=== PATIENT | female | born 1975 | race Caucasian/White ===

== ENCOUNTER 2022-01-27 01:12 | Observation (INO) ==
[2022-01-27] MEDS ORDERED: *HR* Midazolam HCl 2 MG/2 ML VIAL ONE (01:14)
[2022-01-27] MEDS ORDERED: 0.9 % Sodium Chloride 2,000 ML ONE (01:14)
[2022-01-27] MEDS ORDERED: *HR* FentaNYL (PF) 100 MCG/2 ML VIAL ONE (01:14)
[2022-01-27] MEDS ORDERED: Iopamidol - 370 200 ML INFUS..BTL ONE (01:15)
[2022-01-27] MEDS ORDERED: Heparin 1,000 UNITS/500 mL 500 ML ONE (01:15)
[2022-01-27] MEDS ORDERED: *HR* Heparin 10,000 UNIT/10 ML VIAL ONE (01:15)
[2022-01-27] MEDS ORDERED: Nitroglycerin 1,000 MCG/5 ML VIAL IV ONE (01:15)
[2022-01-27] MEDS ORDERED: Tirofiban 12.5 MG/250ML 12.5 MG/250 ML BAG ONE (01:40)
[2022-01-27] MEDS ORDERED: *HR* Ticagrelor 90 MG TABLET ONE (02:10)
[2022-01-27] MEDS ORDERED: Perflutren Lipid Microsphere 1.3 ML in 0.9 % Sodium Chloride 8.7 ML IVP PRN (06:24)
[2022-01-27] MEDS: *HR* Ticagrelor 90 MG TABLET PO SCH ×2 (07:37→20:21)
[2022-01-27] MEDS: Aspirin Enteric Coated 81 MG Tablet PO SCH (07:37)
[2022-01-27 08:02] LABS: Basophils % 0.2 %; Eosinophils % 0.3 %; Hematocrit 35.2 % (35.3-44.9); Hemoglobin 11.6 g/dL (11.5-15.4); Immature Granulocytes % 0.3 % (0-4); Lymphocytes # 2.3 K/mcL (0.6-4.6); Lymphocytes % 24.4 %; Mean Corpuscular Hemoglobin 30.4 pg (28.0-33.3); Mean Corpuscular Volume 92.4 fL (83.0-100.0); Mean Platelet Volume 10.1 fL (9.4-12.4); Monocytes # 0.6 K/mcL (0.0-1.3); Monocytes % 6.6 %; Neutrophils # 6.4 K/mcL (1.6-8.9); Platelet Count 292 K/mcL (140-400); Red Blood Count 3.81 M/mcL (3.82-4.97); Segmented Neutrophils % 68.2 %; White Blood Count 9.4 K/mcL (4.3-11.1)
[2022-01-27 08:21] LABS: BUN/Creatinine Ratio 7 (6-26); Blood Urea Nitrogen 5 mg/dL (6-20); Calcium 8.4 mg/dL (8.6-10.3); Carbon Dioxide 24 mEq/L (23-29); Chloride 107 mEq/L (98-107); Glucose 95 mg/dL (70-105); Osmolality,Calculated 281 (280-300); Sodium 137 mEq/L (136-145); eGFR For African Americans > 60 (> 60); eGFR For Non-African Americans > 60 (> 60)
[2022-01-27 12:24] LABS: BUN/Creatinine Ratio 6 (6-26); Blood Urea Nitrogen 4 mg/dL (6-20); Calcium 9.1 mg/dL (8.6-10.3); Carbon Dioxide 23 mEq/L (23-29); Chloride 108 mEq/L (98-107); Glucose 97 mg/dL (70-105); Osmolality,Calculated 277 (280-300); Potassium 4.5 mEq/L (3.5-5.1); Sodium 135 mEq/L (136-145); eGFR For African Americans > 60 (> 60); eGFR For Non-African Americans > 60 (> 60)
[2022-01-27 12:29] LABS: Troponin I 0.44 ng/mL (< 0.04)
[2022-01-27 20:34] VITALS: O2SAT 98
[2022-01-28 06:54] VITALS: BP 136/80; PULSE 77; TEMP 98.3
[2022-01-28] MEDS: *HR* Ticagrelor 90 MG TABLET PO SCH (07:55)
[2022-01-28] MEDS: Aspirin Enteric Coated 81 MG Tablet PO SCH (07:55)
[2022-01-28] MEDS ORDERED: Nitroglycerin 0.4 MG TAB.SUBL SL PRN (08:08)
== END 2022-01-28 11:38 | disposition home or self-care (01) ==
LOC: 2ANU
PROVIDERS: ADMIT Internal Medicine Cardiovascular Disease; ATTEND Internal Medicine Cardiovascular Disease